=== PATIENT | male | born 1950 | race Caucasian/White ===

== ENCOUNTER → 2020-07-06 | Outpatient (CLI) | payer MEDICARE | LOC: HEART CORB 11:00 | DX: I49.9 Cardiac arrhythmia, unspecified (principal); I08.8 Other rheumatic multiple valve diseases; I27.20 Pulmonary hypertension, unspecified; I77.819 Aortic ectasia, unspecified site; R93.1 Abnormal findings on diagnostic imaging of heart and coronary circulation | CPT/HCPCS: 93306 ==

== ENCOUNTER → 2022-01-18 | Outpatient (CLI) | payer MEDICARE | LOC: HEART CORB 13:53 | DX: I11.9 Hypertensive heart disease without heart failure (principal); I08.3 Combined rheumatic disorders of mitral, aortic and tricuspid valves; R06.02 Shortness of breath | CPT/HCPCS: 93306 ==